=== PATIENT | male | born 1960 | race Caucasian/White ===

== ENCOUNTER 2017-02-23 10:08 | Observation (INO) | payer SELFPAY ==
[~2017-02-23] VITALS: Ht 182.9 cm; Wt 95.0 kg
[~2017-02-23 10:08] MED LIST: ASPI325T PO; CLOP75 PO
[2017-02-23 10:09] VITALS: BP 120/85; PULSE 80; RESP 14; TEMP 98.4; O2SAT 99
--- NOTE | 2017-02-23 10:44 | RADRPT ---
EXAM DATE/TIME: 02/23/2017 10:34 [facility] COMPARISON: CHEST PA & LAT, May 17, 2013, 0:24. INDICATIONS : Patient states chest pains. MEDICAL HISTORY : Hypertension. SURGICAL HISTORY : CABG. Coronary artery stent. ENCOUNTER: Initial ACUITY: 2 days PAIN SCORE: 8/10 LOCATION: Bilateral chest FINDINGS: PA and lateral views of the chest demonstrate the lungs to be symmetrically aerated without evidence of mass, infiltrate or effusion. Status post median sternotomy. The cardiomediastinal contours are u nremarkable. Osseous structures are intact. CONCLUSION: No acute disease. Gabriele Denis MD on February 23, 2017 at 10:42 Board Certified Radiologist. This report was verified electronically.
[2017-02-23 11:01] LABS: AUTOMATED NEUTROPHIL # 3.9 TH/MM3 (1.8-7.7); BASOPHIL # 0.1 TH/MM3 (0-0.2); EOSINOPHIL # 0.1 TH/MM3 (0-0.4); EOSINOPHIL % 1.6 % (0.0-4.0); HEMATOCRIT 47.3 % (39.0-51.0); HEMO FLAGS DIFF FINAL; LYMPH % 29.4 % (9.0-44.0); LYMPHOCYTE # 1.8 TH/MM3 (1.0-4.8); MEAN CELL VOLUME 85.5 FL (80.0-100.0); MEAN CORPUSCULAR HEMOGLOBIN 28.2 PG (27.0-34.0); MONO % 5.3 % (0.0-8.0); NEUT % 62.7 % (16.0-70.0); PLATELET COUNT 241 TH/MM3 (150-450); RED BLOOD COUNT 5.54 MIL/MM3 (4.50-5.90); RED CELL DISTRIBUTION WIDTH 13.6 % (11.6-17.2); WHITE BLOOD COUNT 6.3 TH/MM3 (4.0-11.0)
[2017-02-23 11:22] LABS: ANION GAP 7 MEQ/L (5-15); BICARBONATE 26.8 MEQ/L (21.0-32.0); BLOOD UREA NITROGEN 15 MG/DL (7-18); CHLORIDE 105 MEQ/L (98-107); GLOMERULAR FILTRATION RATE 56 ML/MIN (>89); SODIUM (NA) 139 MEQ/L (136-145)
[2017-02-23 11:23] LABS: CREATINE KINASE 131 U/L (39-308)
--- NOTE | 2017-02-23 11:45 | EKG ---
Date Performed: 02/23/2017 Time Performed: 10:20:12 PTAGE: 56 years EKG: SINUS BRADYCARDIA POSSIBLE LEFT ATRIAL ENLARGEMENT NONSPECIFIC INTRAVENTRICULAR CONDUCTION DELAY T-WAVE ABNORMALITY, CONSIDER ANTEROLATERAL ISCHEMIA ABNORMAL ECG PREVIOUS TRACING : 12/09/2014 19.19 No significant change from previous tracing noted. DOCTOR: Mp Glass Interpretating Date/Time 02/23/2017 11:43:42
[2017-02-23 12:20] VITALS: BP 159/80; PULSE 59; RESP 18; TEMP 97.8; O2SAT 98
[2017-02-23] MEDS ORDERED: ASPI-516 PO (12:25)
[2017-02-23] MEDS ORDERED: PLAV75TA29 PO (12:25)
[2017-02-23] MEDS ORDERED: SODIUM CHLORIDE 0.9% FLUSH 10 ML FLUSH IVF PRN (12:30)
[2017-02-23] MEDS ORDERED: SODIUM CHLORID 0.9% 500 ML INJ 500 ML IV ONE (12:30)
[2017-02-23] MEDS ORDERED: ASPIRIN 81 MG CHEW TAB PO ONE (12:30)
[2017-02-23] MEDS ORDERED: MORPHINE SULFATE 4 MG/ML INJ IV PUSH ONE (12:30)
--- NOTE | 2017-02-23 12:30 | PD ---
HPI Chief Complaint: Chest Pain Time Seen by Provider: 12:14 Travel History International Travel<30 days: No Contact w/Intl Traveler<30days: No Traveled to known affect area: No History of Present Illness HPI Patient is a 56-year-old male presenting to the evaluation of chest pain. Patient states pain started this morning, initially it was sharp, now it is tight and radiating across his chest wall to his left shoulder and left upper chest. He rates the pain a 6 out of 10. Patient states that he has had increased shortness of breath and felt clammy. The pain started approximately 2 -3 hours ago. Patient reports using cocaine 2 days ago but does not use it regularly. He had open heart surgery in March in [place] with stent placement. He has a history of coronary artery disease, hyperlipidemia. He is not currently on any home medications. Patient denies any nausea, vomiting, fever, chills, abdominal pain. He further denies any tobacco use. Patient states he does not use cocaine regularly, he was here from [facility] visiting his ex- and ran into a friend who offered to him. He states that he regrets using it. He also reports being under increased stress lately. PFSH Past Medical History Autoimmune Disease: No Anxiety: Yes Depression: Yes Cancer: No Cardiac Catheterization: Yes (X2; STENT PLACEMENT ) High Cholesterol: Yes Chemotherapy: No Chest Pain: Yes Coronary Artery Disease: Yes Diabetes: No Diminished Hearing: No Endocrine: No Gastrointestinal Disorders: No Genitourinary: No Immune Disorder: No Implanted Vascular Access Dvce: No Musculoskeletal: No Neurologic: No Reproductive: No Respiratory: No Immunizations Current: Yes Myocardial Infarction: Yes (March 2016) Radiation Therapy: No Seizures: Yes (CONVULSION DUE TO A MEDICATION - NOVEMBER 2012) Past Surgical History Cardiac Surgery: Yes (STENT PLACEMENT MARCH 2016) Coronary Artery Bypass Graft: Yes Other Surgery: Yes Social History Alcohol Use: Yes (FREQ) Tobacco Use: No (performer, chewing tobacco) Substance Use: Yes (cocaine) Allergies-Medications (Allergen,Severity, Reaction): Coded Allergies: *MDRO Multi-Drug Resistant Organism (Verified Allergy, Unknown, 12/14/14) MRSA diphenhydramine (Unverified Adverse Reaction, Mild, FEELS UNCOMFORTABLE IN THE CHEST, 12/02/16) Reported Meds & Prescriptions Reported Meds & Active Scripts Active Reported Aspirin 81 Mg Chew 81 Mg PO DAILY Plavix (Clopidogrel Bisulfate) 75 Mg Tab 75 Mg PO DAILY Review of Systems Except as stated in HPI: all other systems reviewed are Neg General / Constitutional: No: Fever, Chills Cardiovascular: Positive: Chest Pain or Discomfort, Diaphoresis, Dyspnea on exertion Respiratory: Positive: Shortness of Breath, No: Wheezing Gastrointestinal: No: Nausea, Abdominal Pain Genitourinary: No: Dysuria Musculoskeletal: No: Myalgias Neurologic: No: Weakness, Dizziness Psychiatric: No: Anxiety Physical Exam Narrative GENERAL: Well-developed, well-nourished, alert. Resting comfortably in no acute distress. SKIN: Warm and dry. HEAD: Atraumatic. Normocephalic. EYES: Pupils equal and round. No scleral icterus. No injection or drainage. ENT: No nasal bleeding or discharge. Mucous membranes pink and moist. NECK: Trachea midline. No JVD. CARDIOVASCULAR: Bradycardic. RESPIRATORY: No accessory muscle use. Clear to auscultation. Breath sounds equal bilaterally. GASTROINTESTINAL: Abdomen soft, non-tender, nondistended. Hepatic and splenic margins not palpable. MUSCULOSKELETAL: Extremities without clubbing, cyanosis, or edema. No obvious deformities. NEUROLOGICAL: Awake and alert. No obvious cranial nerve deficits. Motor grossly within normal limits. Five out of 5 muscle strength in the arms and legs. Normal speech. PSYCHIATRIC: Appropriate mood and affect; insight and judgment normal. Data Data Last Documented VS Vital Signs Date Time Temp Pulse Resp B/P (MAP) Pulse Ox O2 Delivery O2 Flow Rate FiO2 02/23/17 13:17 97.8 48 17 135/87 (103) 100 Room Air Orders Orders Electrocardiogram (02/23/17 10:13) Complete Blood Count With Diff (02/23/17 10:13) Basic Metabolic Panel (Bmp) (02/23/17 10:13) Ckmb (Isoenzyme) Profile (02/23/17 10:13) Troponin I (02/23/17 10:13) Iv Access Insert/Monitor (02/23/17 10:13) Ecg Monitoring (02/23/17 10:13) Oxygen Administration (02/23/17 10:13) Oximetry (02/23/17 10:13) Chest, Pa & Lat (02/23/17 10:13) CKMB (02/23/17 10:33) CKMB% (02/23/17 10:33) Electrocardiogram (02/23/17 12:23) Magnesium (Mg) (02/23/17 12:23) Prothrombin Time / Inr (Pt) (02/23/17 12:23) Act Partial Throm Time (Ptt) (02/23/17 12:23) Lipase (02/23/17 12:23) Aspirin Chew (Aspirin Chew) (02/23/17 12:30) Morphine Inj (Morphine Inj) (02/23/17 12:30) Sodium Chloride 0.9% Flush (Ns Flush) (02/23/17 12:30) Sodium Chlorid 0.9% 500 Ml Inj (Ns 500 M (02/23/17 12:30) Ondansetron Inj (Zofran Inj) (02/23/17 13:30) Admit Order (Ed Use Only) (02/23/17 13:39) Labs Laboratory Tests Test 02/23/17 10:33 White Blood Count 6.3 TH/MM3 Red Blood Count 5.54 MIL/MM3 Hemoglobin 15.6 GM/DL Hematocrit 47.3 % Mean Corpuscular Volume 85.5 FL Mean Corpuscular Hemoglobin 28.2 PG Mean Corpuscular Hemoglobin Concent 33.0 % Red Cell Distribution Width 13.6 % Platelet Count 241 TH/MM3 Mean Platelet Volume 8.6 FL Neutrophils (%) (Auto) 62.7 % Lymphocytes (%) (Auto) 29.4 % Monocytes (%) (Auto) 5.3 % Eosinophils (%) (Auto) 1.6 % Basophils (%) (Auto) 1.0 % Neutrophils # (Auto) 3.9 TH/MM3 Lymphocytes # (Auto) 1.8 TH/MM3 Monocytes # (Auto) 0.3 TH/MM3 Eosinophils # (Auto) 0.1 TH/MM3 Basophils # (Auto) 0.1 TH/MM3 CBC Comment DIFF FINAL Differential Comment Blood Urea Nitrogen 15 MG/DL Creatinine 1.32 MG/DL Random Glucose 97 MG/DL Calcium Level 8.7 MG/DL Sodium Level 139 MEQ/L Potassium Level 4.0 MEQ/L Chloride Level 105 MEQ/L Carbon Dioxide Level 26.8 MEQ/L Anion Gap 7 MEQ/L Estimat Glomerular Filtration Rate 56 ML/MIN Magnesium Level 2.5 MG/DL Total Creatine Kinase 131 U/L Creatine Kinase MB 2.0 NG/ML Troponin I LESS THAN 0.02 NG/ML Lipase 100 U/L MDM Medical Decision Making Medical Screen Exam Complete: Yes Emergency Medical Condition: Yes Medical Record Reviewed: Yes Interpretation(s) Last Impressions Chest X-Ray 02/23/17 1013 Signed Impressions: Service Date/Time: Thursday, February 23, 2017 10:34 - CONCLUSION: No acute disease. Gabriele Denis MD Vital Signs Date Time Temp Pulse Resp B/P (MAP) Pulse Ox O2 Delivery O2 Flow Rate FiO2 02/23/17 12:20 97.8 59 18 159/80 (106) 98 Room Air 02/23/17 12:20 98 Room Air 02/23/17 12:20 58 18 98 Room Air 02/23/17 12:20 18 98 Room Air 02/23/17 10:09 98.4 80 14 120/85 (97) 99 Differential Diagnosis ACS vs USA vs Metabolic abnormality vs chest wall pain vs other Narrative Course Patient is a 56-year-old male presenting to emergency evaluation of chest pain that started approximately 2-3 hours prior to arrival. Patient has a significant cardiac history, recent open heart surgery in March 2016. Patient admits using cocaine 2 days ago. Labs and imaging ordered and pending, IV access established, patient placed on telemetry monitoring and continuous pulse oximetry. Initial EKG at 1020 shows sinus bradycardia with possible left atrial enlargement, moderate intraventricular conduction delay, moderate T-wave abnormality. Rate 57, this is unchanged from prior EKG. Repeat EKG at 1250 ventricular rate is 49, sinus bradycardia. Labs reviewed, no acute abnormalities identified. Initial set of cardiac enzymes are negative. Patient will be admitted to the chest pain center to rule out. Patient is agreeable to plan. Orders place. Diagnosis Primary Impression: Chest pain Qualified Codes: R07.9 - Chest pain, unspecified Admitting Information Admitting Physician Requests: Observation Condition: Stable Nereyda Parikh Feb 23, 2017 12:30
[2017-02-23 13:17] VITALS: BP 135/87; PULSE 48; RESP 17; TEMP 97.8; O2SAT 100
[2017-02-23] MEDS ORDERED: ONDANSETRON HCL 4 MG/2 ML VIAL IV PUSH ONE (13:30)
[2017-02-23 13:33] LABS: MAGNESIUM 2.5 MG/DL (1.5-2.5)
[2017-02-23 14:00] VITALS: BP 130/82; TEMP 97.8
[2017-02-23 14:03] LABS: APTT (PATIENT) 29.6 SEC (24.3-30.1); INTERNATIONAL NORMALIZED RATIO 0.9 RATIO; PROTHROMBIN TIME - PATIENT 10.3 SEC (9.8-11.6)
[2017-02-23] MEDS ORDERED: ACETAMINOPHEN/HYDROcodone 325 MG/7.5 MG TAB PO PRN (14:15)
[2017-02-23] MEDS ORDERED: SODIUM CHLORIDE 0.9% FLUSH 5 ML FLUSH IVF PRN (14:15)
[2017-02-23] MEDS ORDERED: ONDANSETRON HCL 4 MG/2 ML VIAL IV PUSH PRN (14:15)
[2017-02-23] MEDS ORDERED: ACETAMINOPHEN 500 MG CPLT PO PRN (14:15)
[2017-02-23] MEDS ORDERED: PANTOPRAZOLE SOD 40 MG DELAYED RELEASE TAB PO SCH (14:15)
--- NOTE | 2017-02-23 14:29 | HHI.HP ---
HPI Primary Care Physician No Primary Care Physician Chief Complaint CHEST PAIN History of Present Illness This is a 36-year-old male that presents to ED with history of CAD status post 2 vessel bypass March 2016 with complaint of chest discomfort. States he developed a sharp central chest discomfort lasting a second while he was [place] the bus station [place] return to [place]. It recurred 3 or 4 more times and he decided to walk to the ED to have this evaluated. Found nothing to worsen or improve his symptoms. He was short of breath. He also felt clammy. No nausea. States he has not been taking medications as prescribed after having his bypass believing he ran out of medications 3-6 months ago. States he has not had stress test or heart catheterization since his bypass. Admits to snorting cocaine 2 days ago. Denies coughing. Denies fevers or chills. Denies recent illnesses. Review of Systems General: Patient denies fevers, chills recent, and recent travel HEENT: Patient denies headache, sore throat, difficulty swallowing. Cardiovascular: Has the chest discomfort as mentioned above. Denies sensation of heart beating rapidly or irregularly. No syncope. He was diaphoretic. Respiratory: He was short of breath. Denies inspirational chest discomfort. Denies coughing wheezing or hemoptysis. GI: Patient denies nausea, vomiting, diarrhea, abdominal pain, bloody stools. Musculoskeletal: Patient denies joint pain or edema. Denies calf pain or edema. Neurovascular: Patient denies numbness, tingling, weakness in extremities. Denies headache. Endocrine: Denies polyuria and polydipsia. Hematologic: Denies easy bruising. Skin: Denies rash or itching. Past Family Social History Allergies: Coded Allergies: *MDRO Multi-Drug Resistant Organism (Verified Allergy, Unknown, 12/14/14) MRSA diphenhydramine (Unverified Adverse Reaction, Mild, FEELS UNCOMFORTABLE IN THE CHEST, 12/02/16) Past Medical History CAD with 2 vessel bypass in March 2016. Had stenting several years ago. Hypertension and hyperlipidemia with noncompliance of medications. Cocaine abuse. Denies diabetes. Past Surgical History Two-vessel bypass March 2016. Heart catheterizations. Reported Medications Reported Meds & Active Scripts Active Reported Aspirin 81 Mg Chew 81 Mg PO DAILY Plavix (Clopidogrel Bisulfate) 75 Mg Tab 75 Mg PO DAILY Active Ordered Medications Current Medications Medications (Trade) Dose Ordered Sig/Cele Route Start Time Stop Time Status Last Admin (NS Flush) 2 ml UNSCH PRN IVF 02/23/17 12:30 02/23/17 12:33 (NS Flush) 2 ml UNSCH PRN IVF 02/23/17 14:15 UNV (NS Flush) 2 ml BID IVF 02/23/17 21:00 UNV (Tylenol) 500 mg Q4H PRN PO 02/23/17 14:15 UNV (Forney 7.5-325 Mg) 1 tab Q4H PRN PO 02/23/17 14:15 UNV (Zofran Inj) 4 mg Q6H PRN IV PUSH 02/23/17 14:15 UNV (Protonix) 40 mg DAILY PO 02/23/17 14:15 UNV (Aspirin) 325 mg DAILY PO 02/24/17 09:00 UNV Family History His father has cardiac issues. Social History Patient denies smoking tobacco but states he has chewed tobacco for 40 years. Used cocaine 2 days ago but states he had been sober for 1 year prior. Rarely has alcohol. Physical Exam Vital Signs Vital Signs Date Time Temp Pulse Resp B/P (MAP) Pulse Ox O2 Delivery O2 Flow Rate FiO2 02/23/17 13:17 97.8 48 17 135/87 (103) 100 Room Air 02/23/17 12:38 16 02/23/17 12:20 97.8 59 18 159/80 (106) 98 Room Air 02/23/17 12:20 98 Room Air 02/23/17 12:20 58 18 98 Room Air 02/23/17 12:20 18 98 Room Air 02/23/17 10:09 98.4 80 14 120/85 (97) 99 Physical Exam GENERAL: This is a well-nourished, well-developed patient, in no apparent distress. Patient speaks in clear complete sentences. Patient is pleasant. HEENT: Head is atraumatic and normocephalic. Neck is supple without lymphadenopathy and trachea is midline. No JVD or carotid bruits. CARDIOVASCULAR: To 6 systolic murmur left sternal border as well as right sternal border. Does not radiate into the neck. Regular rate and rhythm without gallops or rubs. RESPIRATORY: Clear to auscultation. Breath sounds equal bilaterally. No wheezes , rales, or rhonchi. Chest wall is nontender. No use of accessory muscles. GASTROINTESTINAL: Abdomen is nontender, nondistended. Abdomen soft. No obvious pulsatile mass or bruit. No CVA tenderness. Strong femoral pulses bilaterally. Normal bowel sounds in all quadrants. MUSCULOSKELETAL: Patient is moving upper and lower extremities freely. No calf tenderness or edema, no Homans sign. Strong pulses in upper and lower extremities. NEUROLOGICAL: Patient is alert and oriented. Cranial nerves 2-12 are grossly intact. No focal deficits and speech is clear. SKIN: No rash and turgor is normal. Laboratory Laboratory Tests Test 02/23/17 10:33 02/23/17 13:10 White Blood Count 6.3 Red Blood Count 5.54 Hemoglobin 15.6 Hematocrit 47.3 Mean Corpuscular Volume 85.5 Mean Corpuscular Hemoglobin 28.2 Mean Corpuscular Hemoglobin Concent 33.0 Red Cell Distribution Width 13.6 Platelet Count 241 Mean Platelet Volume 8.6 Neutrophils (%) (Auto) 62.7 Lymphocytes (%) (Auto) 29.4 Monocytes (%) (Auto) 5.3 Eosinophils (%) (Auto) 1.6 Basophils (%) (Auto) 1.0 Neutrophils # (Auto) 3.9 Lymphocytes # (Auto) 1.8 Monocytes # (Auto) 0.3 Eosinophils # (Auto) 0.1 Basophils # (Auto) 0.1 CBC Comment DIFF FINAL Differential Comment Blood Urea Nitrogen 15 Creatinine 1.32 Random Glucose 97 Calcium Level 8.7 Sodium Level 139 Potassium Level 4.0 Chloride Level 105 Carbon Dioxide Level 26.8 Anion Gap 7 Estimat Glomerular Filtration Rate 56 Magnesium Level 2.5 Total Creatine Kinase 131 Creatine Kinase MB 2.0 Troponin I LESS THAN 0.02 Lipase 100 Prothrombin Time 10.3 Prothromb Time International Ratio 0.9 Activated Partial Thromboplast Time 29.6 Result Diagram: 02/23/17 1033 02/23/17 1033 Imaging Last 48 hours Impressions Chest X-Ray 02/23/17 1013 Signed Impressions: Service Date/Time: Thursday, February 23, 2017 10:34 - CONCLUSION: No acute disease. Gabriele Denis MD Course Initial EKG is sinus bradycardia rate of [address] segment depressions or elevations. Caprini VTE Risk Assessment Caprini VTE Risk Assessment: No/Low Risk (score <= 1) Caprini Risk Assessment Model Point Value = 1 Point Value = 2 Point Value = 3 Point Value = 5 Age 41-60 Minor surgery BMI > 25 kg/m2 Swollen legs Varicose veins or History of unexplained or recurrent spontaneous Oral contraceptives or hormone replacement Sepsis (< 1 month) Serious lung disease, including pneumonia (< 1 month) Abnormal pulmonary function Acute myocardial infarction Congestive heart failure (< 1 month) History of inflammatory bowel disease Medical patient at bed rest Age 61-74 Arthroscopic surgery Major open surgery (> 45 min) Laparoscopic surgery (> 45 min) Malignancy Confined to bed (> 72 hours) Immobilizing plaster cast Central venous access Age >= 75 History of VTE Family history of VTE Factor V Leiden Prothrombin [id number] Lupus anticoagulant Anticardiolipin antibodies Elevated serum homocysteine Heparin-induced thrombocytopenia Other congenital or acquired thrombophilia Stroke (< 1 month) Elective arthroplasty Hip, pelvis, or leg fracture Acute spinal cord injury (< 1 month) Prophylaxis Regimen Total Risk Factor Score Risk Level Prophylaxis Regimen 0-1 Low Early ambulation 2 Moderate Order ONE of the following: *Sequential Compression Device (SCD) *Heparin 5000 units SQ BID 3-4 Higher Order ONE of the following medications: *Heparin 5000 units SQ TID *Enoxaparin/Lovenox 40 mg SQ daily (WT < 150 kg, CrCl > 30 mL/min) *Enoxaparin/Lovenox 30 mg SQ daily (WT < 150 kg, CrCl > 10-29 mL/min) *Enoxaparin/Lovenox 30 mg SQ BID (WT < 150 kg, CrCl > 30 mL/min) AND/OR *Sequential Compression Device (SCD) 5 or more Highest Order ONE of the following medications: *Heparin 5000 units SQ TID (Preferred with Epidurals) *Enoxaparin/Lovenox 40 mg SQ daily (WT < 150 kg, CrCl > 30 mL/min) *Enoxaparin/Lovenox 30 mg SQ daily (WT < 150 kg, CrCl > 10-29 mL/min) *Enoxaparin/Lovenox 30 mg SQ BID (WT < 150 kg, CrCl > 30 mL/min) AND *Sequential Compression Device (SCD) Assessment and Plan Assessment and Plan * Chest pain: Patient will continue to have serial cardiac enzymes and EKGs for ruling out purposes. He will be seen by Dr. Logan Garcia of cardiology in the chest pain center. He will likely have stress testing if he rules out and will likely be discharged home if the stress test is nonischemic with instructions to follow-up with her satellite tv technician installer as well as PCP. He should quit tobacco products as well as stop using cocaine. * CAD: We'll reassess likely with stress testing. * Hypertension: Patient states he has not medications for months. He has been normotensive will continue to monitor. * Hyperlipidemia: Patient states she's been noncompliant. He will need to have medication restarted upon returning to [place] and following with his PCP. * Cocaine abuse: Patient has been counseled on the importance of no longer using cocaine. * Tobacco abuse: Patient has been counseled on importance of no longer using tobacco products. Patient is stable at this time. He is agreeable to this plan. Og Ceja Feb 23, 2017 14:29
[2017-02-23 15:35] LABS: CREATINE KINASE 119 U/L (39-308)
[2017-02-23 15:48] LABS: CKMB 1.7 NG/ML (0.5-3.6)
--- NOTE | 2017-02-23 17:01 | HHI.DCPOC ---
Discharge Care Plan Diagnosis: (1) Tobacco abuse (2) Cocaine abuse (3) Hypertension (4) Hyperlipidemia (5) CAD (coronary artery disease) (6) Hx of CABG (7) Chest pain Goals to Promote Your Health DISCUSS WITH BENDING MACHINE SET UP OPERATOR AND PCP TAKING CHOLESTEROL MEDICATIONS AND HEART MEDICATIONS. * To prevent worsening of your condition and complications * To maintain your health at the optimal level Directions to Meet Your Goals Take your medications as prescribed Follow your dietary instruction Follow activity as directed Keep your appointments as scheduled Take your immunizations and boosters as scheduled If your symptoms worsen call your PCP, if no PCP go to Urgent Care Center or Emergency Room Smoking is Dangerous to Your Health. Avoid second hand smoke Call the 24-hour hour crisis hotline for domestic abuse at Og Ceja Feb 23, 2017 17:00
[2017-02-23] MEDS ORDERED: REGADENOSON INJ 0.4 MG/5 ML SYR ONE (17:11)
--- NOTE | 2017-02-23 18:20 | RADRPT ---
EXAM DATE/TIME: 02/23/2017 16:20 [facility] COMPARISON: No previous studies available for comparison. INDICATIONS : Chest pain and polysubstance abuse. Angina. DOSE: 26.2 mCi Tc99m Myoview at stress. 8.6 mCi Tc99m Myoview at rest. 0.4 mg Lexiscan STRESS SYMPTOMS: Chest pressure. EJECTION FRACTION: 66% MEDICAL HISTORY : Myocardial infarction. Hypertension. Hypercholesterolemia. Polysubstance abuse. SURGICAL HISTORY : CABG ENCOUNTER: Initial ACUITY: 1 day PAIN SCALE: 0/10 LOCATION: Bilateral chest TECHNIQUE: The patient underwent pharmacologic stress with infusion of prescribed dose. Continuous ECG tracing was monitored during stress. Gated SPECT imaging was performed after stress and conventional SPECT i maging was performed at rest. The examination was performed on a SPECT/CT scanner, both attenuation and non-corrected datasets were reviewed. FINDINGS: DISTRIBUTION: The maximum perfused segment at stress is in the inferior wall. PERFUSION STUDY: The pattern of perfusion at stress is within normal limits. No fixed or reversible perfusion defect i s identified. GATED STUDY: There is intact wall motion and thickening without hypokinetic or dyskinetic segments. CONCLUSION: 1. No left ventricle perfusion abnormality is identified. 2. Normal left ventricle wall motion and ejection fraction. RISK CATEGORY: Low (<1% Annual Mortality Rate) Luis Armando Diaz MD on February 23, 2017 at 18:15 Board Certified Radiologist. This report was verified electronically.
[2017-02-23 18:31] VITALS: BP 136/85; PULSE 50; RESP 18; TEMP 97.6; O2SAT 99
[2017-02-23] MEDS ORDERED: SODIUM CHLORIDE 0.9% FLUSH 5 ML FLUSH IVF SCH (21:00)
[2017-02-24] MEDS ORDERED: ASPIRIN 325 MG TAB PO SCH (09:00)
[2017-02-24] MEDS ORDERED: CLOPIDOGREL 75 MG TAB PO SCH (09:00)
--- NOTE | 2017-02-24 09:18 | EKG ---
Date Performed: 02/23/2017 Time Performed: 12:50:07 PTAGE: 56 years EKG: SINUS BRADYCARDIA POSSIBLE LEFT ATRIAL ENLARGEMENT MODERATE T-WAVE ABNORMALITY, CONSIDER AN TEROLATERAL ISCHEMIA ABNORMAL ECG Since PREVIOUS TRACING , no significant change noted PREVIOUS TRACIN02/23/2017 10.20 DOCTOR: Yazmin Hendrix Interpretating Date/Time 02/24/2017 09:17:39
--- NOTE | 2017-02-24 09:18 | TR ---
Date Performed: 02/23/2017 Time Performed: 17:15:18 DOCTOR: Yazmin Hendrix DRUG LIST: CLINICAL HISTORY: REASON FOR TEST: CHEST PAIN REASON FOR ENDING: OBSERVATION: CONCLUSION: Lexiscan stress test was performed under standard four minute protocol. Radionuclid e was injected one minute prior to ending the test. No electrocardiographic abormalities were present to suggest ischemia. Nuclear imaging and interpretation are pending. COMMENTS:
--- NOTE | 2017-02-24 09:18 | EKG ---
Date Performed: 02/23/2017 Time Performed: 18:25:16 PTAGE: 56 years EKG: SINUS BRADYCARDIA LEFT ATRIAL ENLARGEMENT MODERATE INTRAVENTRICULAR CONDUCTION DELAY MODERA TE T-WAVE ABNORMALITY, CONSIDER ANTEROLATERAL ISCHEMIA ABNORMAL ECG Since PREVIOUS TRACING , no significant change noted PREVIOUS TRACIN02/23/2017 12.50 DOCTOR: Yazmin Hendrix Interpretating Date/Time 02/24/2017 09:16:47
== END 2017-02-23 20:16 | disposition home or self-care (01) ==
LOC: NEPE 10:08 → NEDA 13:40 → NEPFCDU 14:29
PROVIDERS: ADMIT Internal Medicine Cardiovascular Disease; ATTEND Internal Medicine Cardiovascular Disease
DX: R07.89 Other chest pain (principal); I10 Essential (primary) hypertension; E78.5 Hyperlipidemia, unspecified; I25.10 Atherosclerotic heart disease of native coronary artery without angina pectoris; F14.10 Cocaine abuse, uncomplicated; R94.31 Abnormal electrocardiogram [ECG] [EKG]; R06.02 Shortness of breath; F17.200 Nicotine dependence, unspecified, uncomplicated; Z95.1 Presence of aortocoronary bypass graft
CPT/HCPCS: 71020; 78452; 80048; 82550; 82552; 83690; 83735; 84484; 85025; 85379; 85610; 85730; 93005; 93017; 96361; 96374; 96375; 99285; A9502; G0378; J2270; J2405; J2785; J7040

== ENCOUNTER 2018-06-03 15:23 | Observation (INO) ==
[2018-06-03 15:43] VITALS: RESP 16
--- NOTE | 2018-06-03 15:55 | ED ---
HPI General Chief Complaint: Chest Pain Stated Complaint: chest pain Time Seen by Provider: 06/03/18 15:39 Source: patient and RN notes reviewed Mode of arrival: ambulatory Limitations: no limitations History of Present Illness HPI narrative: 58-year-old male presents to the emergency department for evaluation of left-sided chest pain that started at 1 PM this afternoon. Patient states it is currently 6/10, stabbing and pressure. He states it was intermittent, but is now steady, but less painful. He states it does radiate to the left shoulder. He reports associated nausea. He states he did have some diaphoresis, but had to walk a long distance. He reports associated shortness of breath. He denies any abdominal pain. No nausea, vomiting, diarrhea. Patient reports history of open heart surgery approximately 3 years ago, 3 previous cardiac stents in 2007. Patient states he is not currently established with a pugger helper. States he is supposed to be taking Plavix, metoprolol, cholesterol medication, but has not taken it in approximately a week. He has not taken aspirin today. Patient denies any recent surgery, trauma, travel. No leg edema. No hemoptysis. No history of DVT or PE. Patient does admit to snorting cocaine 3 days ago. He denies any IV drug use. Patient denies any recent stress test or cardiac catheterization. Moderate severity. MD complaint: Reports chest pain STEMI Alert: No Onset (ago): hour(s) (3) Time: 13:00 Duration: constant Onset: during rest Pain location: Reports left chest Severity: moderate Severity scale (1-10): 6 Quality: Reports sharp Pain radiation: Reports LUE Relieving factors: nothing Exacerbating factors: nothing Associated symptoms: Reports nausea, diaphoresis and dyspnea; Denies vomiting, sense of impending doom, syncope, palpitations, fever, cough and leg swelling Treatments prior to arrival chest pain: Reports none Related Data Home Medications Medication Instructions Recorded Confirmed clopidogrel 06/03/18 Previous Rx's Medication Instructions Recorded amlodipine [Norvasc] 5 mg PO DAILY tab 06/04/18 Allergies Allergy/AdvReac Type Severity Reaction Status Date / Time diphenhydramine AdvReac Mild FEELS Unverified 12/02/16 16:20 UNCOMFORTABLE IN THE CHEST *MDRO Multi-Drug Resistant Allergy Unknown Uncoded 12/14/14 01:13 Organism Review of Systems ROS: all other systems reviewed are negative [facility] Medical History Medical History High cholesterol (Acute) Hypertension (Acute) Surgical History Surgical History H/O heart artery stent (Acute) Hx of CABG (Acute) Social History Social History Substance History: Active Abuse and Past History Second Hand Smoke Exposure: No Smoking Status: Never smoker How Often Do You Have a Drink Containing Alcohol: Monthly or less Recent Travel in [facility] within the Last 8 Weeks: Yes Recent Out of Country Travel within the Last 8 Weeks: No Immunization History Tetanus Immunization: Unsure Exam Narrative Exam Narrative: GENERAL: Well-nourished, well-developed male patient, afebrile SKIN: Focused skin assessment warm/dry. HEAD: Normocephalic. Atraumatic EYES: No scleral icterus. No injection or drainage. NECK: Supple, trachea midline. No JVD or lymphadenopathy. CARDIOVASCULAR: Regular rate and rhythm without murmurs, gallops, or rubs. Bilateral radial and pedal pulses are 2+ RESPIRATORY: Breath sounds equal bilaterally. No accessory muscle use. Lung sounds are clear to auscultation GASTROINTESTINAL: Abdomen soft, non-tender, nondistended. MUSCULOSKELETAL: No cyanosis, or edema. BACK: Nontender without obvious deformity. No CVA tenderness. Course Initial Documented Vital Signs Temperature 97.4 F L 06/03/18 15:25 Pulse Rate 78 06/03/18 15:25 Respiratory Rate 20 06/03/18 15:25 Blood Pressure 171/83 H 06/03/18 15:25 Pulse Oximetry 99 06/03/18 15:25 Last Documented Vital Signs Temperature 97.7 F 06/04/18 11:21 Pulse Rate 63 06/04/18 11:21 Respiratory Rate 16 06/04/18 11:21 Blood Pressure 123/60 06/04/18 11:21 Pulse Oximetry 96 06/04/18 11:21 Medical Decision Making LUCIO Attestation LUCIO supervised visit: Yes Attestation: Patient was not seen by me or presented by advance practitioner, I was available for consult MDM Narrative Medical decision making narrative: 58-year-old male presents to the emergency department for evaluation of left-sided chest pain that started today around 1 PM. EKG shows sinus rhythm, heart rate 76, inverted T waves in leads I and AVL , unchanged since previous EKG in 03/06. CBC, CMP, Magnesium, CK, Troponin, PTT , PT/INR, Chest x-ray are ordered and pending. Patient is given ASA 162 mg PO. CBC is unremarkable. CMP shows no acute abnormality. Magnesium is 2.5. CK is 102. Troponin is 0.03. Lipase is 76. PTT is 30.7. PT/INR is 10.3/1.0. Chest x-ray shows Mild cardiomegaly with no evidence of pulmonary edema. Patient is given Morphine 4 mg IV, Zofran 4 mg IV for pain. Patient will be admitted to the [facility] for further evaluation. Medical Screen Exam Complete: Yes Emergency Medical Condition: Yes Differential Diagnosis Differential Diagnosis: ACS vs. pneumonia vs. pneumothorax vs. chest wall pain vs. anxiety Medical Records Medical records reviewed: Yes I reviewed the patient's medical records. Lab Data Result diagrams: 06/03/18 15:25 06/03/18 15:40 Lab Results 06/03/18 06/03/18 06/03/18 Range/Units 15:25 15:40 15:40 WBC 6.0 (4.0-11.0) th/mm3 RBC 5.42 (4.50-5.90) mil/mm3 Hgb 16.1 (13.0-17.0) gm/dL Hct 47.0 (39.0-51.0) % MCV 86.7 (80.0-100.0) fL MCH 29.7 (27.0-34.0) pg MCHC 34.3 (32.0-36.0) % RDW 14.2 (11.6-17.2) % Plt Count 256 (150-450) th/mm3 MPV 9.1 (7.0-11.0) fL Neut % (Auto) 69.1 (16.0-70.0) % Lymph % (Auto) 24.0 (9.0-44.0) % [place] % (Auto) 5.8 (0.0-8.0) % Eos % (Auto) 0.4 (0.0-4.0) % Baso % (Auto) 0.7 (0.0-2.0) % Neut # (Auto) 4.1 (1.8-7.7) th/mm3 Lymph # (Auto) 1.4 (1.0-4.8) th/mm3 [place] # (Auto) 0.3 (0.0-0.9) th/mm3 Eos # (Auto) 0.0 (0.0-0.4) th/mm3 Baso # (Auto) 0.0 (0.0-0.2) th/mm3 WBC Differential . Differential Comment Auto diff final PT 10.3 (9.8-11.6) sec INR 1.0 Ratio APTT 30.7 (23.4-31.7) sec Sodium 141 (136-145) meq/L Potassium 4.0 (3.5-5.1) meq/L Chloride 106 (98-107) meq/L Carbon Dioxide 27.7 (21.0-32.0) meq/L Anion Gap 7 (5-15) meq/L BUN 14 (7-18) mg/dL Creatinine 1.25 (0.60-1.30) mg/dL Estimated GFR 60 L (>89) mL/min Random Glucose 84 (74-106) mg/dL Calcium 9.0 (8.5-10.1) mg/dL Magnesium 2.5 (1.5-2.5) mg/dL Total Bilirubin 0.5 (0.2-1.0) mg/dL AST 18 (15-37) U/L ALT 21 (12-78) U/L Alkaline Phosphatase 84 (45-117) U/L Total Creatine Kinase 102 (39-308) U/L CK-MB (CK-2) 2.4 (0.5-3.6) ng/mL Troponin I 0.03 (0.02-0.05) ng/mL Total Protein 7.6 (6.4-8.2) g/dL Albumin 4.0 (3.4-5.0) g/dL Lipase 76 (73-393) U/L 06/03/18 06/03/18 Range/Units 18:42 22:00 WBC (4.0-11.0) th/mm3 RBC (4.50-5.90) mil/mm3 Hgb (13.0-17.0) gm/dL Hct (39.0-51.0) % MCV (80.0-100.0) fL MCH (27.0-34.0) pg MCHC (32.0-36.0) % RDW (11.6-17.2) % Plt Count (150-450) th/mm3 MPV (7.0-11.0) fL Neut % (Auto) (16.0-70.0) % Lymph % (Auto) (9.0-44.0) % [place] % (Auto) (0.0-8.0) % Eos % (Auto) (0.0-4.0) % Baso % (Auto) (0.0-2.0) % Neut # (Auto) (1.8-7.7) th/mm3 Lymph # (Auto) (1.0-4.8) th/mm3 [place] # (Auto) (0.0-0.9) th/mm3 Eos # (Auto) (0.0-0.4) th/mm3 Baso # (Auto) (0.0-0.2) th/mm3 WBC Differential Differential Comment PT (9.8-11.6) sec INR Ratio APTT (23.4-31.7) sec Sodium (136-145) meq/L Potassium (3.5-5.1) meq/L Chloride (98-107) meq/L Carbon Dioxide (21.0-32.0) meq/L Anion Gap (5-15) meq/L BUN (7-18) mg/dL Creatinine (0.60-1.30) mg/dL Estimated GFR (>89) mL/min Random Glucose (74-106) mg/dL Calcium (8.5-10.1) mg/dL Magnesium (1.5-2.5) mg/dL Total Bilirubin (0.2-1.0) mg/dL AST (15-37) U/L ALT (12-78) U/L Alkaline Phosphatase (45-117) U/L Total Creatine Kinase 81 77 (39-308) U/L CK-MB (CK-2) (0.5-3.6) ng/mL Troponin I 0.02 Less than 0.02 L (0.02-0.05) ng/mL Total Protein (6.4-8.2) g/dL Albumin (3.4-5.0) g/dL Lipase (73-393) U/L Imaging Data Radiologist's impression: Chest X-Ray 06/03/18 15:48 CONCLUSION: Mild cardiomegaly with no evidence of pulmonary edema. Myocardial Perfusion Scan Nuc Med 06/04/18 08:09 CONCLUSION: 1. Stable and unremarkable myocardial perfusion examination compared to the prior exam. Discharge Plan Discharge Disposition Patient Disposition: ED Admit(ED Internal Use Only) Discharge Condition Condition: Stable Discharge Order Discharge Orders: Discharge Order (Routine); Ordered 06/04/18 Ordered By: Og Ceja ED Use Only Admit Order (Routine); Ordered 06/03/18 Ordered By: Angy Chou Discharge Details Diagnosis: Chest pain Physicians Team ED Provider: Flako Leach ED Midlevel Provider: Angy Chou Primary Care Provider: Primary Care Julieth Ponce Attending Provider: Yazmin Hendrix ED Status: Left Department Discharge Information Discharge Date/Time: 06/03/18 19:34
--- NOTE | 2018-06-03 16:04 | XR ---
EXAM DATE: 06/03/2018 4:02 PM EST AGE/SEX: 58 years / Male INDICATIONS: Chest pain. CLINICAL DATA: This is the patient's initial encounter. Patient reports that signs and symptoms have been present for 1 day and indicates a pain score of 6/10. MEDICAL/SURGICAL HISTORY: Hypertension. CABG. 2 coronary artery stents COMPARISON: [facility] [place], CHEST PA & LAT, 02/23/2017. . FINDINGS: A single AP view of the chest demonstrates the lungs to be symmetrically aerated without evidence of mass, infiltrate or effusion. The patient is again noted be status post median sternotomy. The heart size is mildly prominent with no perihilar edema. Osseous structures are intact. CONCLUSION: Mild cardiomegaly with no evidence of pulmonary edema. Electronically signed by: Alexi Li MD Board Certified Radiologist 06/03/2018 4:03 PM EST
[2018-06-03 16:17] LABS: Baso % (Auto) 0.7 % (0.0-2.0); Eos % (Auto) 0.4 % (0.0-4.0); Hemoglobin 16.1 gm/dL (13.0-17.0); Lymph # (Auto) 1.4 th/mm3 (1.0-4.8); Mean Corpuscular HGB Conc 34.3 % (32.0-36.0); Mean Corpuscular Hemoglobin 29.7 pg (27.0-34.0); Mean Corpuscular Volume 86.7 fL (80.0-100.0); Mean Platelet Volume 9.1 fL (7.0-11.0); Mono # (Auto) 0.3 th/mm3 (0.0-0.9); Mono % (Auto) 5.8 % (0.0-8.0); Neut # (Auto) 4.1 th/mm3 (1.8-7.7); Neut % (Auto) 69.1 % (16.0-70.0); Platelet Count 256 th/mm3 (150-450); Red Blood Count 5.42 mil/mm3 (4.50-5.90); Red Cell Distribution Width 14.2 % (11.6-17.2)
[2018-06-03 16:25] LABS: Activated Partial Thrombo Time 30.7 sec (23.4-31.7); Prothrombin Time 10.3 sec (9.8-11.6)
[2018-06-03 16:41] LABS: Alanine Aminotransferase 21 U/L (12-78); Anion Gap 7 meq/L (5-15); Aspartate Aminotransferase 18 U/L (15-37); Blood Urea Nitrogen 14 mg/dL (7-18); Carbon Dioxide 27.7 meq/L (21.0-32.0); Chloride 106 meq/L (98-107); Glomerular Filtration Rate 60 mL/min (>89); Glucose,Random 84 mg/dL (74-106); Lipase 76 U/L (73-393); Magnesium 2.5 mg/dL (1.5-2.5); Sodium 141 meq/L (136-145)
[2018-06-03 16:46] LABS: Alkaline Phosphatase 84 U/L (45-117); Creatine Kinase 102 U/L (39-308); Total Protein 7.6 g/dL (6.4-8.2); Troponin I 0.03 ng/mL (0.02-0.05)
[2018-06-03 16:58] LABS: Creatine Kinase MB 2.4 ng/mL (0.5-3.6)
[2018-06-03] MEDS ORDERED: Morphine Inj 4 MG/ML Vial IV.PUSH ONE (17:28)
[2018-06-03] MEDS ORDERED: Acetaminophen 500 MG Tablet PO PRN (17:32)
[2018-06-03 19:31] LABS: Troponin I 0.02 ng/mL (0.02-0.05)
[2018-06-03] MEDS ORDERED: amLODIPine 5 MG Tablet PO ONE (21:15)
[2018-06-03] MEDS: Morphine Inj 4 MG/ML Vial IV.PUSH PRN (21:27)
[2018-06-03 22:43] LABS: Creatine Kinase 77 U/L (39-308)
[2018-06-04] MEDS: Morphine Inj 4 MG/ML Vial IV.PUSH PRN (02:42)
[2018-06-04 07:41] VITALS: O2SAT 96
[2018-06-04] MEDS ORDERED: Regadenoson Inj 0.4 MG/5 ML Syringe IV.PUSH ONE (08:09)
[2018-06-04] MEDS ORDERED: amLODIPine 5 MG Tablet PO SCH (09:00)
[2018-06-04] MEDS ORDERED: Aspirin 325 MG Tablet PO SCH (09:00)
--- NOTE | 2018-06-04 09:00 | P.HPCA ---
History of Present Illness Primary Care Physician: No Primary Care Physician Chief Complaint: Chest pain History of Present Illness: This is a 58-year-old male with history of CAD that had stents in 2007, CABG a few years ago in [place], and stents x2 6 months ago in [place]. He presents to ED with complaint of chest discomfort that began around 1 PM yesterday afternoon. There is intermittent with each episode lasting about 15 minutes. There is stabbing and pressure. He was short of breath with it. Had some diaphoresis. Denied nausea. He should be taking Plavix metoprolol and a cholesterol medication but states he has been out for at least a month. Currently has no chest discomfort. Cannot recall any stress testing or other cardiac evaluation since having stents 6 months ago. Discomfort did not radiate. Nothing really to worsen or improve the symptoms. Past medical history: Patient history of CAD had stents in 2007, CABG 3 years ago, and 6 months ago had 2 more stents of the bypassed vessels. Hypertension and hyperlipidemia and has been noncompliant with his medications. Denies diabetes. Family history: There is family history of CAD. Social history: Patient states he is a lifetime non-smoker. - Diagnosis (1) Chest pain (2) History of coronary artery disease (3) History of heart artery stent (4) History of coronary artery bypass graft (5) Hypertension (6) Hyperlipidemia (7) Non-compliance Review of Systems General: Patient denies fevers, chills, and recent travel. HEENT: Patient denies headache, sore throat, difficulty swallowing. Cardiovascular: Has the chest discomfort as mentioned above. Denies sensation of heart beating rapidly or irregularly. No syncope. He was diaphoretic. Respiratory: He was short of breath. Denies inspirational chest discomfort. Denies coughing wheezing or hemoptysis. GI: Patient denies nausea, vomiting, diarrhea, abdominal pain, bloody stools. Musculoskeletal: Patient denies joint pain or edema. Denies calf pain or edema. Neurovascular: Patient denies numbness, tingling, weakness in extremities. Denies headache. Endocrine: Denies polyuria and polydipsia. Hematologic: Denies easy bruising. Skin: Denies rash or itching. PMFSH - History History Provided By: Patient - Medical History Medical History: Medical History (Last Reviewed 06/03/18 @ 15:54 by SEDA Hoover) High cholesterol Hypertension - Surgical History Surgical History: Surgical History (Last Reviewed 06/03/18 @ 15:54 by SEDA Hoover) H/O heart artery stent Hx of CABG - Tobacco History Second Hand Smoke Exposure: No Tobacco Use In Past 30 Days: No Smoking Status: Never smoker - Alcohol History How Often Do You Have a Drink Containing Alcohol: Monthly or less - Substance Use History Substance History: Active Abuse, Past History - Substance Use Type Crack/Cocaine Type: cocaine 4 years Status: Sustained Remission Route Used: Inhalation - Travel History Recent Travel in the [place] Within the Last 8 Weeks: Yes Recent Travel Out of the Country Within the Last 8 Weeks: No - Immunization History Tetanus Immunization: Unsure Medications and Allergies Active Medications: Active Medications Acetaminophen (Tylenol) 500 mg PO Q4H PRN PRN Reason: HEADACHE Last Admin: 06/04/18 02:44 Dose: 500 mg Albuterol (Albuterol Neb (Prn)) 2.5 mg NEB UNSCH PRN PRN Reason: SHORTNESS OF BREATH/WHEEZING Albuterol (Duoneb Neb (Prn)) 1 ampul NEB UNSCH PRN PRN Reason: SHORTNESS OF BREATH/WHEEZING Amlodipine Besylate (Norvasc) 5 mg PO DAILY LOULOU Aspirin (Aspirin) 325 mg PO DAILY LOULOU Clonidine HCl (Catapres) 0.2 mg PO Q6H PRN PRN Reason: SYS BP GREATER THAN 160 MMHG Morphine Sulfate (Morphine Inj) 2 mg IV.PUSH Q4H PRN PRN Reason: PAIN SCALE 8 TO 10 Last Admin: 06/04/18 02:42 Dose: 2 mg Ondansetron HCl (Zofran Inj) 4 mg IV.PUSH Q6H PRN PRN Reason: NAUSEA Sodium Chloride (Ns Flush) 2 ml IV.FLUSH UNSCH PRN PRN Reason: FLUSH AFTER USING IV ACCESS Last Admin: 06/03/18 21:34 Dose: 2 ml Sodium Chloride (Ns Flush) 2 ml IV.FLUSH BID LOULOU Last Admin: 06/03/18 21:34 Dose: 2 ml Sodium Chloride (Ns Flush) 2 ml IV.FLUSH PRN PRN PRN Reason: FLUSH AFTER USING IV ACCESS Allergies Allergy/AdvReac Type Severity Reaction Status Date / Time diphenhydramine AdvReac Mild FEELS Unverified 12/02/16 16:20 UNCOMFORTABLE IN THE CHEST *MDRO Multi-Drug Resistant Allergy Unknown Uncoded 12/14/14 01:13 Organism Home Medications Medication Instructions Recorded Confirmed Type clopidogrel 06/03/18 History metoprolol tartrate 06/03/18 History Exam Vital signs: Vital Signs 06/03/18 15:25 06/03/18 15:37 06/03/18 15:42 Temperature 97.4 F L Pulse Rate 78 66 63 Respiratory Rate 20 17 16 Blood Pressure 171/83 H 184/105 H 151/86 H Pulse Oximetry 99 98 98 06/03/18 15:48 06/03/18 16:06 06/03/18 16:11 Temperature Pulse Rate 65 60 Respiratory Rate Blood Pressure 149/81 H Pulse Oximetry 97 97 06/03/18 17:51 06/03/18 20:00 06/04/18 00:00 Temperature 97.7 F 97.7 F Pulse Rate 55 L 63 71 Respiratory Rate 16 16 16 Blood Pressure 149/83 H 178/97 H 127/74 Pulse Oximetry 99 96 97 06/04/18 03:28 06/04/18 07:39 Temperature 97.6 F 97.8 F Pulse Rate 53 L 44 L Respiratory Rate 16 16 Blood Pressure 100/57 L 94/52 L Pulse Oximetry 97 96 Intake & Output 06/03/18 06/04/18 06/04/18 18:59 06:59 18:59 Weight 90.718 kg 90.718 kg Other: Date of Last Bowel Movement 06/01/18 Weight On Admission 90.718 kg Narrative: GENERAL: This is a well-nourished, well-developed patient, in no apparent distress. Patient speaks in clear complete sentences. Patient is pleasant. HEENT: Head is atraumatic and normocephalic. Neck is supple without lymphadenopathy and trachea is midline. No JVD or carotid bruits. CARDIOVASCULAR: Regular rate and rhythm without murmurs, gallops, or rubs. RESPIRATORY: Clear to auscultation. Breath sounds equal bilaterally. No wheezes , rales, or rhonchi. Chest wall is nontender. No use of accessory muscles. GASTROINTESTINAL: Abdomen is nontender, nondistended. Abdomen soft. No obvious pulsatile mass or bruit. No CVA tenderness. Strong femoral pulses bilaterally. Normal bowel sounds in all quadrants. MUSCULOSKELETAL: Patient is moving upper and lower extremities freely. No calf tenderness or edema, no Homans sign. Strong pulses in upper and lower extremities. NEUROLOGICAL: Patient is alert and oriented. Cranial nerves 2-12 are grossly intact. No focal deficits and speech is clear. SKIN: No rash and turgor is normal. Results 06/03/18 15:25 06/03/18 15:40 Cardiac Enzymes 06/03/18 06/03/18 06/03/18 Range/Units 15:40 18:42 22:00 AST 18 (15-37) U/L CK-MB (CK-2) 2.4 (0.5-3.6) ng/mL Troponin I 0.03 0.02 Less than 0.02 L (0.02-0.05) ng/mL Coagulation 06/03/18 Range/Units 15:40 PT 10.3 (9.8-11.6) sec APTT 30.7 (23.4-31.7) sec CBC 06/03/18 Range/Units 15:25 WBC 6.0 (4.0-11.0) th/mm3 RBC 5.42 (4.50-5.90) mil/mm3 Hgb 16.1 (13.0-17.0) gm/dL Hct 47.0 (39.0-51.0) % Plt Count 256 (150-450) th/mm3 Neut # (Auto) 4.1 (1.8-7.7) th/mm3 Lymph # (Auto) 1.4 (1.0-4.8) th/mm3 [place] # (Auto) 0.3 (0.0-0.9) th/mm3 Eos # (Auto) 0.0 (0.0-0.4) th/mm3 Baso # (Auto) 0.0 (0.0-0.2) th/mm3 Comprehensive Metabolic Panel 06/03/18 Range/Units 15:40 Sodium 141 (136-145) meq/L Potassium 4.0 (3.5-5.1) meq/L Chloride 106 (98-107) meq/L Carbon Dioxide 27.7 (21.0-32.0) meq/L BUN 14 (7-18) mg/dL Creatinine 1.25 (0.60-1.30) mg/dL Calcium 9.0 (8.5-10.1) mg/dL AST 18 (15-37) U/L ALT 21 (12-78) U/L Alkaline Phosphatase 84 (45-117) U/L Total Protein 7.6 (6.4-8.2) g/dL Albumin 4.0 (3.4-5.0) g/dL Intake and Output 06/03/18 06/04/18 06/04/18 22:59 06:59 14:59 Other: Date of Last Bowel Movement 06/01/18 Weight 90.718 kg Weight On Admission 90.718 kg - Imaging and Cardiology Imaging: Impressions Chest X-Ray 06/03/18 15:48 CONCLUSION: Mild cardiomegaly with no evidence of pulmonary edema. EKG interpretations - EKG EKG shows: sinus rhythm (EKGs are sinus rhythm without significant ST segment depressions or elevations.) Caprini VTE Risk Assessment Caprini VTE Risk Assessment: No/Low Risk (score <= 1) Caprini Risk Assessment Model: Point Value = 1 Point Value = 2 Point Value = 3 Point Value = 5 Age 41-60 Minor surgery BMI > 25 kg/m2 Swollen legs Varicose veins or History of unexplained or recurrent spontaneous Oral contraceptives or hormone replacement Sepsis (< 1 month) Serious lung disease, including pneumonia (< 1 month) Abnormal pulmonary function Acute myocardial infarction Congestive heart failure (< 1 month) History of inflammatory bowel disease Medical patient at bed rest Age 61-74 Arthroscopic surgery Major open surgery (> 45 min) Laparoscopic surgery (> 45 min) Malignancy Confined to bed (> 72 hours) Immobilizing plaster cast Central venous access Age >= 75 History of VTE Family history of VTE Factor V Leiden Prothrombin [id number] Lupus anticoagulant Anticardiolipin antibodies Elevated serum homocysteine Heparin-induced thrombocytopenia Other congenital or acquired thrombophilia Stroke (< 1 month) Elective arthroplasty Hip, pelvis, or leg fracture Acute spinal cord injury (< 1 month) Prophylaxis Regimen: Total Risk Factor Score Risk Level Prophylaxis Regimen 0-1 Low Early ambulation 2 Moderate Order ONE of the following: *Sequential Compression Device (SCD) *Heparin 5000 units SQ BID 3-4 Higher Order ONE of the following medications: *Heparin 5000 units SQ TID *Enoxaparin/Lovenox 40 mg SQ daily (WT < 150 kg, CrCl > 30 mL/min) *Enoxaparin/Lovenox 30 mg SQ daily (WT < 150 kg, CrCl > 10-29 mL/min) *Enoxaparin/Lovenox 30 mg SQ BID (WT < 150 kg, CrCl > 30 mL/min) AND/OR *Sequential Compression Device (SCD) 5 or more Highest Order ONE of the following medications: *Heparin 5000 units SQ TID (Preferred with Epidurals) *Enoxaparin/Lovenox 40 mg SQ daily (WT < 150 kg, CrCl > 30 mL/min) *Enoxaparin/Lovenox 30 mg SQ daily (WT < 150 kg, CrCl > 10-29 mL/min) *Enoxaparin/Lovenox 30 mg SQ BID (WT < 150 kg, CrCl > 30 mL/min) AND *Sequential Compression Device (SCD) Assessment and Plan - Assessment (1) Chest pain Code(s): R07.9 - Chest pain, unspecified Status: Acute (2) History of coronary artery disease Code(s): Z86.79 - Personal history of other diseases of the circulatory system Status: Acute (3) History of heart artery stent Code(s): Z95.5 - Presence of coronary angioplasty implant and graft Status: Acute (4) History of coronary artery bypass graft Code(s): Z95.1 - Presence of aortocoronary bypass graft Status: Acute (5) Hypertension Code(s): I10 - Essential (primary) hypertension Status: Acute (6) Hyperlipidemia Code(s): E78.5 - Hyperlipidemia, unspecified Status: Acute (7) Non-compliance Code(s): Z91.19 - Patient's noncompliance with other medical treatment and regimen Status: Acute - Plan * Chest pain: Patient has had serial cardiac enzymes and EKGs for ruling out purposes and has been seen by Dr. Hendrix of cardiology in the chest pain center. Initially plan was to do a Marco Antonio protocol ETT but patient declines. Socially patient will have a Lexiscan and would be discharged home if stress test is nonischemic with instructions to follow-up with certified diabetes educator and PCP. * History of CAD: Patient has had stents, bypass and in-stent again. He has not been taking his Plavix. We will restart Plavix and amlodipine and he will need follow-up with certified diabetes educator or PCP for lipid management. * Hypertension: Rx amlodipine. * Hyperlipidemia: He will need follow-up with PCP for lipid management. * Noncompliance: Patient has been counseled importance of taking medication as prescribed. Patient is stable at this time. He is agreeable to this plan. H&P: Quality - VTE Deep Vein Thrombosis/Pulmonary Embolism Present on Admission: No (1) Chest pain Qualifiers: Chest pain type: unspecified Qualified Code(s): R07.9 - Chest pain, unspecified
--- NOTE | 2018-06-04 10:43 | NM ---
EXAM DATE: 06/04/2018 10:33 AM EST AGE/SEX: 58 years / Male INDICATIONS:Angina. Coronary artery disease Substernal chest pain. CLINICAL DATA: This is the patient's initial encounter. Patient reports that signs and symptoms have been present for 1 day and indicates a pain score of 7/10. MEDICAL/SURGICAL HISTORY: Hypertension. CABG. Coronary artery stent. COMPARISON: [facility] – [place], MYOCARDIAL PERF PHARM SPECT, 02/23/2017. . DOSE: 8.2 mCi Tc 99m Myoview at rest 25.4 mCi [id number] at stress 0.4 mg Lexiscan STRESS SYMPTOMS: Flushed and heart racing. EJECTION FRACTION: 67 % TECHNIQUE: The patient underwent pharmacologic stress with infusion of prescribed dose. Continuous ECG tracing was monitored during stress. Gated SPECT imaging was performed after stress and conventi onal SPECT imaging was performed at rest. The examination was performed on a SPECT/CT scanner, both attenuation and non-corrected datasets were reviewed. FINDINGS: Distribution: The maximum perfused segment at stress is in the inferior wall. Perfusion Study: The pattern of perfusion at stress is within normal limits. Gated Study: There are intact wall motion and wall thickening without hypokinetic or dyskinetic segm ents. The ejection fraction is calculated at 67%. RISK CATEGORY: Low (<1% Annual Mortality Rate) No significant change compared to the prior study. CONCLUSION: 1. Stable and unremarkable myocardial perfusion examination compared to the prior exam. Electronically signed by: Rodger Smith MD Board Certified Radiologist 06/04/2018 10:41 AM EST
[2018-06-04 11:22] VITALS: BP 123/60; PULSE 63; TEMP 97.7
--- NOTE | 2018-06-04 17:16 | TR ---
Date Performed: 06/04/2018 Time Performed: 09:44:52 DOCTOR: Yazmin Hendrix DRUG LIST: CLINICAL HISTORY: REASON FOR TEST: REASON FOR ENDING: OBSERVATION: CONCLUSION: Lexiscan stress test was performed under standard four minute protocol. Radionuclid e was injected one minute prior to ending the test. No electrocardiographic abormalities were present to suggest ischemia. Nuclear imaging and interpretation are pending. COMMENTS: Lexiscan stress test was performed under standard four minute protocol. Radionuclide was injected one minute prior to ending the test. No electrocardiographic abormalities were present t o suggest ischemia. Nuclear imaging and interpretation are pending.
--- NOTE | 2018-06-04 17:18 | ECG ---
Date Performed: 06/03/2018 Time Performed: 21:39:44 PTAGE: 58 years EKG: Sinus rhythm POSSIBLE LEFT ATRIAL ENLARGEMENT MODERATE INTRAVENTRICULAR CONDUCTION DELAY MODERATE T-WAVE ABNORMAL ITY, CONSIDER LATERAL ISCHEMIA ABNORMAL ECG Since PREVIOUS TRACING , no significant change noted PREVIOUS TRACIN06/03/2018 18.51 DOCTOR: Yazmin Hendrix Interpretating Date/Time 06/04/2018 17:16:57
--- NOTE | 2018-06-04 17:19 | ECG ---
Date Performed: 06/03/2018 Time Performed: 18:51:18 PTAGE: 58 years EKG: Sinus rhythm POSSIBLE LEFT ATRIAL ENLARGEMENT MODERATE INTRAVENTRICULAR CONDUCTION DELAY NONSPECIFIC T-WAVE ABNOR MALITY PROLONGED QT INTERVAL ABNORMAL ECG Since PREVIOUS TRACING , no significant change noted PREVIOUS TRACIN06/03/2018 15.34 DOCTOR: Yazmin Hendrix Interpretating Date/Time 06/04/2018 17:18:10
--- NOTE | 2018-06-04 17:19 | ECG ---
Date Performed: 06/03/2018 Time Performed: 15:34:03 PTAGE: 58 years EKG: Sinus rhythm WITH OCCASIONAL SUPRAVENTRICULAR PREMATURE COMPLEXES LEFT ATRIAL ENLARGEMENT BORDERLINE LEFT AXIS DE VIATION Mild ST-WAVE ABNORMALITY, CONSIDER LATERAL ISCHEMIA ABNORMAL ECG Since PREVIOUS TRACING , no significant change noted PREVIOUS TRACIN02/23/2017 18.25 DOCTOR: Yazmin Hendrix Interpretating Date/Time 06/04/2018 17:17:59
[2018-06-05] MEDS ORDERED: amLODIPine 5 MG Tablet PO SCH (09:00)
== END 2018-06-04 12:03 | disposition home or self-care (01) ==
LOC: NEPC 15:23 → NEDA 15:23 → NEPHCDU 19:31
PROVIDERS: ADMIT Internal Medicine Interventional Cardiology; ATTEND Internal Medicine Interventional Cardiology
DX: Z86.79 Personal history of other diseases of the circulatory system; Z82.49 Family history of ischemic heart disease and other diseases of the circulatory system; R94.31 Abnormal electrocardiogram [ECG] [EKG]; Z91.14 Patient's other noncompliance with medication regimen; R07.89 Other chest pain; Z79.02 Long term (current) use of antithrombotics/antiplatelets; E78.00 Pure hypercholesterolemia, unspecified; Z95.5 Presence of coronary angioplasty implant and graft; Z95.1 Presence of aortocoronary bypass graft; I10 Essential (primary) hypertension; Z16.24 Resistance to multiple antibiotics; E78.5 Hyperlipidemia, unspecified
CPT/HCPCS: 71010; 71045; 78452; 80053; 82550; 82552; 83690; 83735; 84484; 85025; 85610; 85730; 93005; 93017; 96374; 96375; 96376; 99285; A9502; G0378; J2270; J2405; J2785; Q9969